=== PATIENT | male | born 1960 | race Caucasian/White ===

== ENCOUNTER 2020-03-30 09:50 | Inpatient (IN) | payer SELFPAY ==
[~2020-03-30] VITALS: Ht 180.3 cm; Wt 94.6 kg
--- NOTE | 2020-03-30 09:50 | NUR ---
PATIENT ARRIVED AND MOVED SELF TO HOSPITAL BED WITH NO DIFFICULTIES. PT HAS NO COMPLAINTS. BSM APPLIED WITH VITALS STABLE. DR DUMONT NOTIFIED OF HIS ARRIVAL. ORIENTED TO ROOM AND CALL LIGHT WITHIN REACH. PERSONAL BELONGINGS WITH PATIENT AT THIS TIME.
[2020-03-30] MEDS ORDERED: dilTIAZem DRIP PRE-MIX 125 ML IV SCH (10:30)
[2020-03-30] MEDS ORDERED: ENOXAPARIN 100 MG/1 ML (LOVENOX) SYR SC SCH (11:00)
[2020-03-30] MEDS ORDERED: ONDANSETRON 4 MG/2 ML (SDV) Z0FRAN IV PRN (11:00)
[2020-03-30] MEDS ORDERED: diphenhydrAMINE 25 MG TAB (BENADRYL) PO PRN (11:00)
[2020-03-30] MEDS ORDERED: ANTACID SUSP 30 ML UDC (MYLANTA) PO PRN (11:00)
[2020-03-30] MEDS ORDERED: ONDANSETRON 4 MG (ZOFRAN) ORAL DISSOLVE TAB PO PRN (11:00)
[2020-03-30] MEDS ORDERED: MELATONIN 3 MG TABLET PO PRN (11:00)
[2020-03-30] MEDS ORDERED: ACETAMINOPHEN 325 MG TABLET PO PRN (11:00)
[2020-03-30] MEDS ORDERED: polyethylene glycoL POWDER 17 GM (MIRALAX) PACK PO PRN (11:00)
--- NOTE | 2020-03-30 12:28 | History & Physical-Hospitalist ---
History of Present Illness HPI/Chief Complaint Kvng Garrett is a 59-year-old male who presented with chest pain. He reports that started last night. He tried to walk a short distance and got short of breath. He says the pain was located in the center of his chest and did not move. There is no radiation to his neck, jaw, or arms. He denies any diaphoresis. He denies any nausea or vomiting. He denies any fevers or chills. He has a chronic cough after having a pneumonia 2 months ago. He denies any nausea or vomiting. He denies any diarrhea. He denies any abdominal pain. He has not noticed any leg swelling. He reports having an episode with rapid heart rate about 11 years ago. He underwent an echocardiogram and a heart catheterization. 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 He also underwent evaluation for carotid stenosis but this turned out to be negative. Followed with Dr. Ríos at that time. Date Seen 03/30/20 Time Seen by a Provider: 10:45 Attending Physician Alma Dumont MD PCP Aaron Hyman MD Referring Physician Date of Admission Mar 30, 2020 at 09:50 Home Medications & Allergies Home Medications Reviewed patient Home Medication Reconciliation performed by pharmacy medication reconciliations survey cad technician and/or nursing. Patients Allergies have been reviewed. Allergies Allergies Coded Allergies hydrocodone (Verified Allergy, Mild, Itching, 03/30/20) Past Ejrmnca-Hapycf-Khozak Hx Past Med/Social Hx: Reviewed Nursing Past Med/Soc Hx Patient Social History Alcohol Use: Occasionally Uses Alcohol Beverage of Choice: Beer Recreational Drug Use: No Smoking Status: Never a Smoker Review of Systems Constitutional: no symptoms reported EENTM: no symptoms reported Respiratory: cough Cardiovascular: chest pain Gastrointestinal: no symptoms reported Genitourinary: no symptoms reported Musculoskeletal: no symptoms reported Skin: no symptoms reported Psychiatric/Neurological: No Symptoms Reported Physical Exam Physical Exam Vital Signs Vital Signs - First Documented 03/30/20 10:48 Pulse 113 B/P (MAP) 124/93 Capillary Refill : Height, Weight, BMI Height: '" Weight: lbs. oz. kg; BMI Method: General Appearance: No Apparent Distress, Obese HEENT: PERRL/EOMI, Pharynx Normal Neck: Normal Inspection, Supple Respiratory: Lungs Clear, Normal Breath Sounds, No Respiratory Distress Cardiovascular: Irregularly Irregular, Tachycardia Gastrointestinal: Normal Bowel Sounds, Non Tender, Soft Extremity: Normal Inspection, Non Tender, No Pedal Edema Neurologic/Psychiatric: Alert, Oriented x3, No Motor/Sensory Deficits, Normal Mood/Affect Skin: Normal Color, Warm/Dry Lymphatic: No Adenopathy Results Results/Procedures Labs Patient resulted labs reviewed. Assessment/Plan Admission Diagnosis atrial fibrillation with rapid ventricular response Admission Status: Inpatient Order (span 2 midnights) Reason for Inpatient Admission: AFib requiring IV medications NSTEMI requriring cardiology evaluation Assessment and Plan Atrial fibrillation with rapid ventricular response NSTEMI Presented to [facility] with AFib RVR Started on Cardizem and Lovenox Troponin elevated Repeat troponin Continue Cardizem gtt Continue Lovenox Cardiology consulted, appreciate assistance Continue Aspirin Check lipid panel Echo ordered Diagnosis/Problems Diagnosis/Problems (1) Atrial fibrillation with rapid ventricular response Status: Acute (2) NSTEMI (non-ST elevation myocardial infarction) Status: Acute (3) Obesity Status: Chronic ALMA DUMONT MD Mar 30, 2020 12:28
[2020-03-30] MEDS ORDERED: REGADENOSON 0.4 MG/5 ML SYR (LEXISCAN) IV ONE (13:30)
[2020-03-30 13:39] LABS: BASOPHILS # (AUTO) 0.1 10^3/uL (0.0-0.1); BASOPHILS % (AUTO) 1 % (0-10); EOSINOPHILS # (AUTO) 0.2 10^3/uL (0.0-0.3); EOSINOPHILS % (AUTO) 2 % (0-10); HEMATOCRIT 48 % (40-54); HEMOGLOBIN 16.1 g/dL (13.3-17.7); LYMPHOCYTES # (AUTO) 2.5 10^3/uL (1.0-4.0); LYMPHOCYTES % (AUTO) 23 % (12-44); MEAN CORPUSCULAR HEMOGLOBIN 30 pg (25-34); MEAN CORPUSCULAR HGB CONC 33 g/dL (32-36); MEAN CORPUSCULAR VOLUME 91 fL (80-99); MEAN PLATELET VOLUME 10.5 fL (9.0-12.2); MONOCYTES # (AUTO) 0.9 10^3/uL (0.0-1.0); MONOCYTES % (AUTO) 8 % (0-12); NEUTROPHILS # (AUTO) 6.9 10^3/uL (1.8-7.8); NEUTROPHILS % (AUTO) 66 % (42-75); PLATELET COUNT 213 10^3/uL (130-400); WHITE BLOOD COUNT 10.5 10^3/uL (4.3-11.0)
[2020-03-30 13:40] LABS: ALBUMIN 4.1 GM/DL (3.2-4.5); CHLORIDE 107 MMOL/L (98-107); POTASSIUM 4.2 MMOL/L (3.6-5.0); SODIUM 138 MMOL/L (135-145)
[2020-03-30 13:41] LABS: CALCIUM 9.1 MG/DL (8.5-10.1)
[2020-03-30 13:42] LABS: GLUCOSE 126 MG/DL (70-105)
[2020-03-30 13:43] LABS: TOTAL PROTEIN 6.9 GM/DL (6.4-8.2)
[2020-03-30 13:44] LABS: BILIRUBIN,TOTAL 0.9 MG/DL (0.1-1.0); CARBON DIOXIDE 20 MMOL/L (21-32)
[2020-03-30 13:46] LABS: ALKALINE PHOSPHATASE 81 U/L (40-136); CREATININE SERUM 0.99 MG/DL (0.60-1.30); GFR ESTIMATED > 60
[2020-03-30 13:47] LABS: BUN/CREATININE RATIO 14
[2020-03-30 13:49] LABS: ALANINE AMINOTRANSFERASE 78 U/L (0-55)
--- NOTE | 2020-03-30 13:52 | Consultation-Cardiology ---
HPI-Cardiology Cardiology Consultation: Date of Consultation 03/30/20 Time Seen by a Provider: 12:30 Date of Admission Attending Physician Alma Goncalves MD Admitting Physician Aaron Hyman MD Consulting Physician SEAN OWUSU MD, MA, FACP, FACC, FSCAI, CCDS HPI: Chief Complaint: Reason for consultation: A Fib with RVR HPI 59 yo man who had presented to his local hospital with several hours of shortness of breath, vague chest discomfort and gen malaise. He was found to have A fib with a rapid vent response. Troponin was elevated. He was transferred to this hosp for further eval and treatment. Reports a similar episode 11 years ago. Was seen by Dr Ríos at [facility]. Says had a card cath at that [facility]. Was told coronaries were clean. Was on some anticoagulation for a while. Quit a long time ago. Denies sleep apnea, but notes interrupted, unrestful sleep Review of Systems-Cardiology Review of Systems Constitutional: malaise; No weight loss, No weight gain Eyes: No vision change Ears/Nose/Throat: No ear discharge, No nasal drainage, No recent hearing loss Respiratory: As described under HPI Cardiovascular: As described under HPI Gastrointestinal: No diarrhea, No nausea, No vomiting Genitourinary: No dysuria, No hematuria, No urine frequency changes Musculoskeletal: No back pain, No joint pain Skin: No rash, No ulcerations Psychiatric/Neurological: No seizure, No focal weakness, No syncope Hematologic: No bleeding abnormalities RIW-Wpaobf-Sfccaa Hx Patient Social History Alcohol Use: Occasionally Uses Recreational Drug Use: No Smoking Status: Never a Smoker Past Medical History PMH As described under Assessment. Family Medical History Family Medical History: Does not report fam h/o early CAD or SCD Allergies and Home Medications Allergies Coded Allergies: hydrocodone (Verified Allergy, Mild, Itching, 03/30/20) Patient Home Medication List Home Medication List Reviewed: Yes Physical Exam-Cardiology Physical Exam Vital Signs/I&O 03/30/20 03/30/20 03/30/20 10:48 11:35 12:44 Pulse 113 100 112 B/P (MAP) 124/93 Capillary Refill : Constitutional: AAO x 3, well-developed, well-nourished HEENT: EOMI, hearing is well preserved; No xanthelasmas are seen Neck: carotid pulses are 2 + bilaterally, with good upstrokes Respiratory: accessory muscle use, other (fair to good bilateral air entry) Cardiovascular: irregularly irregular, S1 and S2, systolic murmur (faint BLAYNE at card base) Gastrointestinal: No tender; soft; No guarding, No rebound; audible bowel sounds Extremities: No clubbing, No cyanosis, No significant edema Neurologic/Psychiatric: oriented x 3, other (moves all limbs equally) Skin: No rash on exposed areas, No ulcerations on exposed areas Data Review Labs Laboratory Tests 03/30/20 11:55: Troponin I 1.421*H, Triglycerides Level 121, Cholesterol Level 188, LDL Cholesterol Direct 151H, VLDL Cholesterol 24, HDL Cholesterol 35L Laboratory Tests 03/30/20 11:55 A/P-Cardiology Assessment/Admission Diagnosis PAF with RVR Elevated troponin, probably type 2 [place] due to A Fib with RVR Echo 03/30/20: LVEF 60-65%, severe conc LVH, LVOT gradient 18 mmhg, severely dilated LA, PASP 35-40 mmHg Suspected sleep apnea Discussion and Recomendations * Long-acting dilt for rate control * Apixaban for stroke prophylaxis * MPI for cor eval * TSH * Monitor labs * Further recs to be based on hosp course SEAN OWUSU MD FACP FAC CCDS Mar 30, 2020 13:52
[2020-03-30 15:47] VITALS: BP 94/73
[2020-03-30] MEDS ORDERED: NIAC500T24 PO (16:22)
[2020-03-30] MEDS ORDERED: ASPI-999 PO (16:22)
[2020-03-30] MEDS ORDERED: OMEP40CA27 PO (16:22)
--- NOTE | 2020-03-30 18:42 | NUR ---
UPDATED ON PATIENT CONDITION. ALL QUESTIONS ANSWERED.
[2020-03-30 19:08] VITALS: BP 100/71
[2020-03-30] MEDS: APIXABAN 5 MG (ELIQUIS) TABLET PO SCH (20:24)
[2020-03-30] MEDS: DOCUSATE SODIUM 100 MG (COLACE) CAP PO SCH (21:40)
[2020-03-30] MEDS: SENNOSIDES 8.6 MG (SENOKOT) TAB PO SCH (21:40)
[2020-03-31] VITALS: BP 104/64
[2020-03-31 04:00] VITALS: BP 107/64
[2020-03-31 04:17] LABS: BASOPHILS # (AUTO) 0.1 10^3/uL (0.0-0.1); BASOPHILS % (AUTO) 1 % (0-10); EOSINOPHILS # (AUTO) 0.4 10^3/uL (0.0-0.3); EOSINOPHILS % (AUTO) 4 % (0-10); HEMATOCRIT 47 % (40-54); HEMOGLOBIN 15.4 g/dL (13.3-17.7); LYMPHOCYTES # (AUTO) 2.5 10^3/uL (1.0-4.0); LYMPHOCYTES % (AUTO) 26 % (12-44); MEAN CORPUSCULAR HEMOGLOBIN 30 pg (25-34); MEAN CORPUSCULAR HGB CONC 33 g/dL (32-36); MEAN CORPUSCULAR VOLUME 91 fL (80-99); MEAN PLATELET VOLUME 9.8 fL (9.0-12.2); MONOCYTES # (AUTO) 0.9 10^3/uL (0.0-1.0); MONOCYTES % (AUTO) 9 % (0-12); NEUTROPHILS # (AUTO) 5.9 10^3/uL (1.8-7.8); NEUTROPHILS % (AUTO) 61 % (42-75); PLATELET COUNT 200 10^3/uL (130-400); WHITE BLOOD COUNT 9.8 10^3/uL (4.3-11.0)
[2020-03-31 04:35] LABS: BUN/CREATININE RATIO 16; CALCIUM 8.7 MG/DL (8.5-10.1); CARBON DIOXIDE 22 MMOL/L (21-32); CHLORIDE 108 MMOL/L (98-107); CREATININE SERUM 1.11 MG/DL (0.60-1.30); GFR ESTIMATED > 60; GLUCOSE 123 MG/DL (70-105); POTASSIUM 4.1 MMOL/L (3.6-5.0); SODIUM 138 MMOL/L (135-145)
[2020-03-31] MEDS: CATHETER FLUSH 10 ML SYR IV PRN ×2 (07:14→08:12)
[2020-03-31] MEDS ORDERED: REGADENOSON 0.4 MG/5 ML SYR (LEXISCAN) IV ONE (08:05)
[2020-03-31 08:09] VITALS: BP 109/68
--- NOTE | 2020-03-31 08:52 | Progress Note - Cardiology ---
Cardiology SOAP Progress Note Subjective: No c/o CP, palpitations, syncope, near syncope or LE swelling Objective: I&O/Vital Signs 04/01/20 00:00 Intake Total 350 ml Balance 350 ml Constitutional: AAO x 3, well-developed, well-nourished Respiratory: accessory muscle use, other (fair to good bilateral air entry) Cardiovascular: irregularly irregular, S1 and S2, systolic murmur (faint BLAYNE at card base) Gastrointestional: No tender; soft; No guarding, No rebound; audible bowel sounds Extremities: No clubbing, No cyanosis, No significant edema Neurologic/Psychiatric: oriented x 3, other (moves all limbs equally) Skin: No rash on exposed areas, No ulcerations on exposed areas Results/Procedures: Labs A/P: Assessment: PAF with RVR - rate controlled Elevated troponin, probably type 2 CT due to A Fib with RVR Echo 03/30/20: LVEF 60-65%, severe conc LVH, LVOT gradient 18 mmhg, severely dilated LA, PASP 35-40 mmHg Suspected sleep apnea OAC with Eliquis Plan: * Continue long-acting dilt for rate control * Apixaban for stroke prophylaxis * MPI for cor eval - pendingt * TSH WNL * Monitor labs * Further recs to be based on hosp course LORIE SAHU Mar 31, 2020 08:52
[2020-03-31] MEDS ORDERED: ASPIRIN E.C. 81 MG (ECOTRIN) TAB PO SCH (09:00)
[2020-03-31] MEDS: APIXABAN 5 MG (ELIQUIS) TABLET PO SCH (10:23)
[2020-03-31] MEDS: DOCUSATE SODIUM 100 MG (COLACE) CAP PO SCH (10:24)
[2020-03-31] MEDS: SENNOSIDES 8.6 MG (SENOKOT) TAB PO SCH (10:24)
[2020-03-31] MEDS ORDERED: NIAC500T24 PO (10:30)
[2020-03-31] MEDS ORDERED: OMEP20TA7 PO (10:30)
[2020-03-31] MEDS ORDERED: ALBU18HF2 INH (10:30)
[2020-03-31] MEDS ORDERED: ASPI-1238 PO (10:30)
--- NOTE | 2020-03-31 10:31 | NUR ---
SPOKE WITH THE PT AND WENT THRU THE EXT MED HISTORY TO COMPLETE THE MED REC PT HAD BEEN PRESCRIBED FUROSEMIDE BUT ACCORDING TO THE PT HIS PCP TOLD HIM TO WEEN HIMSELF OFF AND HE HAS NOT BEEN TAKING OTC MEDS: ASPIRIN 81 NIACIN OMEPRAZOLE
[2020-03-31 12:00] VITALS: BP 128/88
--- NOTE | 2020-03-31 14:35 | Progress Note - Cardiology ---
Cardiology SOAP Progress Note Subjective: Feels well Denies cp or palp or syncope or shortness of breath or swelling Denies n/v Wishes to go home Objective: I&O/Vital Signs 03/31/20 03/31/20 03/31/20 03/31/20 04:00 08:09 09:00 12:00 Temp 36.8 36.0 Pulse 82 75 72 Resp 18 16 13 B/P (MAP) 107/64 (78) 109/68 (82) 128/88 (101) Pulse Ox 94 98 95 95 O2 Delivery Room Air Room Air Room Air Room Air 03/31/20 00:00 Intake Total 200 ml Balance 200 ml Constitutional: AAO x 3, well-developed, well-nourished Respiratory: accessory muscle use, other (fair to good bilateral air entry) Cardiovascular: irregularly irregular, S1 and S2, systolic murmur (faint BLAYNE at card base) Gastrointestional: No tender; soft; No guarding, No rebound; audible bowel sounds Extremities: No clubbing, No cyanosis, No significant edema Neurologic/Psychiatric: oriented x 3, other (moves all limbs equally) Skin: No rash on exposed areas, No ulcerations on exposed areas Results/Procedures: Labs Laboratory Tests 03/31/20 03:42: Sodium Level 138, Potassium Level 4.1, Chloride Level 108H, Carbon Dioxide Level 22, Anion Gap 8, Blood Urea Nitrogen 18, Creatinine 1.11, Estimat Glomerular Filtration Rate > 60, BUN/Creatinine Ratio 16, Glucose Level 123H, Calcium Level 8.7, Magnesium Level 2.0, Troponin I 0.974*H 03/31/20 03:50: White Blood Count 9.8, Red Blood Count 5.14, Hemoglobin 15.4, Hematocrit 47, Mean Corpuscular Volume 91, Mean Corpuscular Hemoglobin 30, Mean Corpuscular Hemoglobin Concent 33, Red Cell Distribution Width 12.9, Platelet Count 200, Mean Platelet Volume 9.8, Immature Granulocyte % (Auto) 1, Neutrophils (%) (Auto) 61, Lymphocytes (%) (Auto) 26, Monocytes (%) (Auto) 9, Eosinophils (%) (Auto) 4, Basophils (%) (Auto) 1, Neutrophils # (Auto) 5.9, Lymphocytes # (Auto) 2.5, Monocytes # (Auto) 0.9, Eosinophils # (Auto) 0.4H, Basophils # (Auto) 0.1, Immature Granulocyte # (Auto) 0.1 A/P: Assessment: PAF with RVR - currently controlled Elevated troponin, probably type 2 [place] due to A Fib with RVR Echo 03/30/20: LVEF 60-65%, severe conc LVH, LVOT gradient 18 mmhg, severely dilated LA, PASP 35-40 mmHg MPI 03/31/20: No ischemia or infarction, normal LV function, mild cardiomegaly Suspected sleep apnea OAC with Eliquis Plan: We recommend the following: * Long-acting diltiazem for rate control * Apixaban for stroke prophylaxis * Outpt cardiac f/u * Outpt sleep studies All of the above discussed with Mr Garrett. We informed him of his test results, including cardiomegaly and left ventricular hypertrophy, and have advised f/u. Also discussed with his attending Dr Cheek. SEAN OWUSU MD [facility] CCDS Mar 31, 2020 14:35
[2020-03-31] MEDS ORDERED: DILT180C85 PO (14:41)
[2020-03-31] MEDS ORDERED: APIX5TAB PO (14:41)
--- NOTE | 2020-03-31 14:57 | Discharge Inst-Simple/Standard ---
Discharge Inst-Standard Discharge Medications New, Converted or Re-Newed RX: Transmitted to Pharmacy Patient Instructions/Follow Up Plan of Care/Instructions/FU: Please continue to take your medications as written. Please follow up with your primary care doctor Dr Hyman and your marketing project specialist Dr Oviedo. Activity as Tolerated: Yes Discharge Diet: No Restrictions Return to The Hospital For: Chest pain, shortness of breath, racing heart, fever, confusion, if you feel you are getting worse. KIRILL AMBRIZ MD Mar 31, 2020 14:57
--- NOTE | 2020-03-31 15:01 | Discharge Summary ---
Diagnosis/Chief Complaint Date of Admission Mar 30, 2020 at 09:50 Date of Discharge Discharge Date: Mar 31, 2020 Admission Diagnosis atrial fibrillation with rapid ventricular response Primary Care Aaron Hyman MD Discharge Diagnosis (1) Atrial fibrillation with rapid ventricular response Status: Acute (2) NSTEMI (non-ST elevation myocardial infarction) Status: Acute (3) Obesity Status: Chronic Discharge Summary Discharge Physical Exam Allergies: Coded Allergies: hydrocodone (Verified Allergy, Mild, Itching, 03/30/20) Vitals & I&Os Vital Signs Date Time Temp Pulse Resp B/P (MAP) Pulse Ox O2 Delivery O2 Flow Rate FiO2 03/31/20 12:00 36.0 72 13 128/88 (101) 95 Room Air General Appearance: No Apparent Distress, WD/WN Cardiovascular: Regular Rate, Rhythm, No Murmur Neurologic/Psychiatric: Alert, Oriented x3 Hospital Course Pt is a 59yoCM who presented to the ER due to elevated troponin and new onset atrial fibrillation with RVR. Cardiology was consulted. He was started on a card izem drip and did well. He underwent stress test today with cardiology and it was low risk. He was started on oral cardizem and did well. He was discharged home in stable condition to follow up with his primary care doctor and Dr Oviedo for cardiology follow up. Labs (last 24 hrs) Laboratory Tests 03/31/20 03:42: Sodium Level 138, Potassium Level 4.1, Chloride Level 108H, Carbon Dioxide Level 22, Anion Gap 8, Blood Urea Nitrogen 18, Creatinine 1.11, Estimat Glomerular Filtration Rate > 60, BUN/Creatinine Ratio 16, Glucose Level 123H, Calcium Level 8.7, Magnesium Level 2.0, Troponin I 0.974*H 03/31/20 03:50: White Blood Count 9.8, Red Blood Count 5.14, Hemoglobin 15.4, Hematocrit 47, Mean Corpuscular Volume 91, Mean Corpuscular Hemoglobin 30, Mean Corpuscular Hemoglobin Concent 33, Red Cell Distribution Width 12.9, Platelet Count 200, Mean Platelet Volume 9.8, Immature Granulocyte % (Auto) 1, Neutrophils (%) (Auto) 61, Lymphocytes (%) (Auto) 26, Monocytes (%) (Auto) 9, Eosinophils (%) (Auto) 4, Basophils (%) (Auto) 1, Neutrophils # (Auto) 5.9, Lymphocytes # (Auto) 2.5, Monocytes # (Auto) 0.9, Eosinophils # (Auto) 0.4H, Basophils # (Auto) 0.1, Immature Granulocyte # (Auto) 0.1 Patient resulted labs reviewed. Discussion & Recommendations Discharge Planning: >30 minutes discharge planning Discharge Home Medications: Active Scripts Active Diltiazem 24Hr ER (Diltiazem HCl) 180 Mg Cap.er.24h 360 Mg PO DAILY Eliquis (Apixaban) 5 Mg Tablet 5 Mg PO BID Reported Omeprazole 20 Mg Tablet. 20 Mg PO HS Niacin (Niacinamide) 500 Mg Tablet 500 Mg PO HS Aspirin EC (Aspirin) 81 Mg Tablet.dr 81 Mg PO HS Ventolin Hfa (Albuterol Sulfate) 18 Gm Hfa.aer.ad 1-2 Puff INH Q4H PRN Instructions to patient/family Please see electronic discharge instructions given to patient. Clinical Quality Measures DVT/VTE Risk/Contraindication: Risk Factor Score Per Nursin RFS Level Per Nursing on Admit: 4+=Very High KIRILL AMBRIZ MD Mar 31, 2020 15:01
--- NOTE | 2020-03-31 15:41 | NUR ---
CM FINALIZED DISCHARGE PLAN: Patient discharging to home today self care. He has new medication needs. One of his new medications is Eliquis. Free thirty day coupon printed and given to patient at this time. We discussed this medication and answered his questions. He has no concerns about affording medications and reported that he has filled out financial paperwork to see if he qualifies for any assistance. Voiced readiness to get home.
--- NOTE | 2020-03-31 20:29 | STRESS TEST ---
DATE OF SERVICE: 03/31/2020 RESTING AND POST REGADENOSON TECHNETIUM-99M TETROFOSMIN SPECT CT IMAGING ORDERING PHYSICIAN: Dr. Damico. PRIMARY PHYSICIAN: Dr. Hyman. ATTENDING PHYSICIAN: Dr. Goncalves. CLINICAL DIAGNOSES: Chest discomfort, atrial fibrillation with rapid ventricular response. Baseline images were carried out after injection of 10.87 mCi of technetium-99m Tetrofosmin. This was followed by 0.4 mg regadenoson and 32.7 mCi of technetium-99m Tetrofosmin for stress imaging. The electrocardiogram showed sinus rhythm at baseline. Old septal wall myocardial infarction cannot be excluded on the electrocardiogram. There is subtle, nonspecific ST and T-wave abnormality. This became slightly more pronounced with regadenoson infusion. The patient tolerated the procedure well. Review of images at rest and following stress does not indicate any significant perfusion defects consistent with significant myocardial ischemia or infarction. Gated images show normal global left ventricular systolic function with normal regional wall motion. Left ventricular ejection fraction is calculated to be 71%. Left ventricular end diastolic volume is 103 mL. TID is absent (1.14). CONCLUSIONS: 1. This study does not indicate significant myocardial ischemia or infarction. 2. Normal regional wall motion. 3. Normal global left ventricular systolic function with ejection fraction of 71%. 4. Mild cardiomegaly. Job ID: [id number] DocumentID: [id number] Dictated Date: 03/31/2020 13:05:44 Orchid Superintendent Date: 03/31/2020 20:28:03 Dictated By: SEAN DAMICO MD, MA, FACP, FACC,
== END 2020-03-31 16:10 | disposition home or self-care (01) | DRG 282 ==
LOC: CSD 09:50
PROVIDERS: ADMIT Internal Medicine; ATTEND Internal Medicine
DX: I48.0 Paroxysmal atrial fibrillation (principal); I21.A1 Myocardial infarction type 2; E66.9 Obesity, unspecified; G47.30 Sleep apnea, unspecified; Z79.01 Long term (current) use of anticoagulants; Z68.29 Body mass index [BMI] 29.0-29.9, adult
CPT/HCPCS: 36415; 78452; 80048; 80053; 80061; 83735; 84443; 84484; 85025; 93005; 93017; 93306